=== PATIENT | female | born 1995 | race Caucasian/White ===

== ENCOUNTER 2022-04-13 01:39 | Emergency (ER) | payer OTHER ==
[~2022-04-13] VITALS: Ht 170.2 cm; Wt 49.9 kg
[2022-04-13] MEDS ORDERED: SULFAMETH/TRIMETH 800/160 MG TABLET ONE (02:23)
[2022-04-13] MEDS ORDERED: SULF1TAB48 PO (02:24)
[2022-04-13] MEDS ORDERED: SULFAMETH/TRIMETH 800/160 MG TABLET PO ONE (02:30)
== END 2022-04-13 02:56 | disposition left against medical advice (07) ==
LOC: ER 01:48
DX: E10.621 Type 1 diabetes mellitus with foot ulcer (principal); L97.419 Non-pressure chronic ulcer of right heel and midfoot with unspecified severity
CPT/HCPCS: A4663